=== PATIENT | male | born 1955 | race Caucasian/White ===

== ENCOUNTER 2020-08-01 14:12 | Outpatient (CLI) | payer BC, SELFPAY | END 2020-08-01 14:13 | disposition home or self-care (01) | LOC: ANHAUDIO 14:15 | PROVIDERS: PCP Internal Medicine; Visit Provider Nurse Practitioner Family | DX: H91.90 Unspecified hearing loss, unspecified ear (principal) | CPT/HCPCS: 92557; 92567 ==

== ENCOUNTER 2023-05-17 10:46 | Emergency (ER) | payer OTHER, SELFPAY ==
[2023-05-17] VITALS (11 sets, daily range): BP systolic 131–157; BP diastolic 83–99; PULSE 72–89; RESP 12–20; TEMP 36.8; O2SAT 94–98
--- NOTE | ~2023-05-17 | XR_ITS ---
EXAMINATION: XR elbow RT min 3V INDICATION: Right elbow pain TECHNIQUE: Four views of the right elbow are obtained. COMPARISON: None available FINDINGS: There is an acute, nondisplaced fracture of the radial head. An elbow joint effusion is pre sent. No additional fracture is identified. 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 IMPRESSION: 1. Acute radial head fracture with elbow joint effusion. Reviewed, dictated and finalized at location B. OR STORAGE ENGINEER
--- NOTE | ~2023-05-17 | CT_ITS ---
EXAMINATION:CT diagnostic chest w con DATE: 05/17/2023 13:10 INDICATION: Right chest pain. Trauma. TECHNIQUE: Computed tomography (CT) of the chest was performed with 75 mL Omnipaque 350 intravenous c ontrast. Automated exposure control and iterative reconstruction technique were employed. The dose-le ngth product (DLP) was 573.90 mGy-cm. COMPARISON: CT abdomen and pelvis 08/14/2013 FINDINGS: The lungs demonstrate mild atelectasis. No pleural effusion. The heart size is normal. No p ericardial effusion. There are coronary artery calcifications. There is a moderate-sized sliding hiat al hernia. There is a 5 mm cyst in the liver. There are fractures of anterior right second, third, fo urth, fifth, and sixth ribs. There is severe facet spondylosis. IMPRESSION: 1. Fractures of anterior right second-sixth ribs. 2. Moderate-sized sliding hiatal hernia. Reviewed, dictated and finalized at location A. NET DEVELOPER
--- NOTE | ~2023-05-17 | CT_ITS ---
EXAMINATION: CT cervical spine wo con DATE: 05/17/2023 12:47 INDICATION: Head injury. TECHNIQUE: Computed tomography (CT) of the cervical spine was performed without intravenous contrast. Automated exposure control and iterative reconstruction technique were employed. The dose-length pro duct was 454.28 mGy-cm. COMPARISON: None FINDINGS: There is 5 degrees levocurvature of cervical spine. 2 mm retrolisthesis of C3 on C4 and C4 on C5. Vertebral body heights are normal. There is severely decreased disc height at C3-C4 and C4-C5, mildly decreased disc height at C5-C6, and moderately decreased disc height at C6-C7. The following disc levels are specifically discussed: C2-C3: There is mild bilateral uncovertebral joint osteoarthritis. There is severe bilateral facet toby int osteoarthritis. There is mild left neural foraminal stenosis. There is no central canal stenosis. C3-C4: There is severe bilateral uncovertebral joint osteoarthritis. There is mild right and severe l eft facet joint osteoarthritis. There is mild bilateral neural foraminal stenosis. There is mild cent ral canal stenosis. C4-C5: There is severe bilateral uncovertebral joint osteoarthritis. There is mild lateral facet join t osteoarthritis. There is mild right and moderate left neural foraminal stenosis. There is mild cent ral canal stenosis. C5-C6: There is mild bilateral uncovertebral joint osteoarthritis. There is severe bilateral facet toby int osteoarthritis. There is mild bilateral neural foraminal stenosis. There is mild central canal st enosis. C6-C7: There is moderate right and severe left uncovertebral joint osteoarthritis. There is severe bi lateral facet joint osteoarthritis. There is mild bilateral neural foraminal stenosis. There is mild central canal stenosis. C7-T1: There is no uncovertebral joint osteoarthritis. There is mild right and severe left facet join t osteoarthritis. There is mild left neural foraminal stenosis. There is no central canal stenosis. IMPRESSION: 1. No fracture. 2. Severe cervical spondylosis. Reviewed, dictated and finalized at location A. RTISING MANAGER
--- NOTE | ~2023-05-17 | XR_ITS ---
EXAMINATION: XR chest 2V DATE: 05/17/2023 13:00 INDICATION: Right-sided chest pain TECHNIQUE: AP and lateral views of the chest are obtained. COMPARISON: 08/05/2013 FINDINGS: The lungs are free of acute opacities. No pleural effusion or pneumothorax. The heart size is normal. There is a small sliding hiatal hernia. There is mild thoracic spondylosis. Healed right-s ided rib fractures are noted. IMPRESSION: 1. No acute cardiopulmonary abnormality. Reviewed, dictated and finalized at location B. PUSHER
--- NOTE | ~2023-05-17 | CT_ITS ---
EXAMINATION: CT brain wo con DATE: 05/17/2023 12:47 INDICATION: Head injury. Fall from tree. TECHNIQUE: Computed tomography (CT) of the head was performed without intravenous contrast. The mA wa s adjusted according to patient size. Iterative reconstruction technique was employed. The dose-lengt h product was 605.33 mGy-cm. COMPARISON: Head CT 07/12/2015 FINDINGS: There is no intracranial hemorrhage, acute infarction, or abnormal intracranial mass lesion . The ventricles are normal in size. There is mild mucosal thickening in the paranasal sinuses. The o rbits are normal. The mastoid air cells are normal. IMPRESSION: 1. Normal brain. Reviewed, dictated and finalized at location A. PURSE SEINER IMPRESSION: 1. Normal brain.
--- NOTE | ~2023-05-17 | XR_ITS ---
EXAMINATION: XR wrist RT min 3V INDICATION: Right wrist pain TECHNIQUE: Four views of the right wrist are obtained. COMPARISON: None available FINDINGS: Bone alignment is normal. There is subtle heterotopic ossification projecting dorsal to the proximal carpal row on the lateral view. There is mild osteoarthritis at the radiocarpal joints, tri scaphe joint, and the first carpometacarpal joint. IMPRESSION: 1. Possible small dorsal carpal chip fracture. Reviewed, dictated and finalized at location B.
--- NOTE | 2023-05-17 11:20 | ECG_ITS ---
Measurements Intervals Calvin Rate: 73 P: 47 AK: 179 QRS: 2 QRSD: 104 T: 35 QT: 376 QTc: 415 Interpretive Statements SINUS RHYTHM WITH OCCASIONAL SUPRAVENTRICULAR PREMATURE COMPLEXES NONSPECIFIC T-WAVE ABNORMALITY BORDERLINE ECG NO PREVIOUS ECG AVAILABLE FOR COMPARISON Electronically Signed On 05-17-2023 14:13:23 SCREENING REPRESENTATIVE by Vahid Polanco M.D.
[2023-05-17] MEDS: ONDANSETRON INJ 4 MG/2 ML VIAL IV PUSH (12:32)
[2023-05-17] MEDS: MORPHINE SULFATE (*CRX) 4 MG/ML INJ IV PUSH (12:33)
[2023-05-17 12:38] LABS: Basophils Percent Auto 0.3 % (0.2-1.2); Eosinophils Percent Auto 0.2 % (0-4.4); Hematocrit 45.8 % (42.0-52.0); Hemoglobin 15.1 g/dL (14.0-18.0); Immature Granulocyte Absolute 0.04 K/mm3 (0.00-0.031); Immature Granulocyte Percent A 0.4 % (0-0.5); Lymphocytes Absolute Auto 0.96 K/mm3 (0.9-3.2); Lymphocytes Percent Auto 9.1 % (18.3-44.2); Mean Corpuscular Hemoglobin 30.1 pg (26-34); Mean Corpuscular Volume 91.2 fl (80-100); Mean Platelet Volume 9.4 fl (7.4-10.4); Monocytes Absolute Auto 0.7 K/mm3 (0.1-0.6); Monocytes Percent Auto 6.7 % (2.6-8.5); Neutrophils Absolute Auto 8.8 K/mm3 (1.3-6.7); Neutrophils Percent Auto 83.3 % (45.5-73.1); Platelet Count Result 231 k/mm3 (150-375); Red Blood Count 5.02 M/mm3 (4.6-6.20); Red Cell Distribution Width 12.8 % (11.5-14.5); White Blood Count 10.6 K/mm3 (4.5-10.0)
--- NOTE | 2023-05-17 12:42 | ED.FALL ---
HPI - Fall General Chief Complaint: Fall Stated Complaint: fall out of tree- ambultory Time Seen by Provider: 05/17/23 12:09 Source: patient, RN notes reviewed and old records reviewed Mode of arrival: ambulatory Limitations: no limitations History of Present Illness HPI Narrative: This is a 67 year old male who presents for evaluation of right rib pain, right wrist pain, and right elbow s/p fall. PAtient states he was on ladder cutting down a limb. He fell of the ladder face first. He states he hit his head but denies LOC. He was able to get up and he ambulatory immediately. He has right frontal rib pain but he does not think he broke a rib. He has pain with breathing. He also reports right elbow pain with movement and right wrist pain. He denies taking anticoagulation. Related Data Allergies Allergy/AdvReac Type Severity Reaction Status Date / Time No Known Allergies Allergy Mild Verified 05/17/23 11:38 Review of Systems Review of Systems: All systems reviewed & are unremarkable except as noted in HPI and below Constitutional: Constitutional: Denies weakness Cardiovascular: Cardiovascular: Reports chest pain, Denies syncope, Denies rapid heart rate, Denies irregular heart rhythm, Denies leg edema and Denies dyspnea Respiratory: Respiratory: Denies chest congestion, Denies hemoptysis, Denies excessive phlegm production and Denies dyspnea Gastrointestinal: Gastrointestinal: Denies abdominal pain, Denies hematochezia, Denies diarrhea and Denies vomiting Genitourinary: Genitourinary: Denies hematuria, Denies dysuria, Denies penile discharge and Denies testicular pain Musculoskeletal: Musculoskeletal: Reports back pain, Reports arthralgias, Denies joint swelling, Denies loss of height and Denies muscle weakness Neurologic: Reports dizziness, Denies syncope, Denies focal weakness and Denies weakness PMFSH Past Medical History Medical History (Updated 05/17/23 @ 14:27 by Elaina Guerra MD) Rheumatoid arthritis Surgical History Surgical History (Updated 05/17/23 @ 13:10 by Elaina Guerra MD) H/O surgical amputation of finger Social History Social History (Updated 05/17/23 @ 13:10 by Elaina Guerra MD) Tobacco type: cigars Exam Const: General: no acute distress and alert Nutritional Appearance: well nourished Orientation/consciousness: patient oriented x3 HENMT: Face/Nose/Sinus: Normal external nose present Mouth: Yes Normal oral and palatal mucosa present, Yes lip normal and Yes moist mucous membranes Throat: posterior oropharynx normal and uvula midline Other: right forehead abrasion Eyes: Conjunctivae: conjunctivae normal Pupils: Equal, round and reactive pupils present EOM: EOMs intact bilaterally Neck: Other: in cervical collar Chest: Chest palpation & inspection: tenderness (right anterior chest) Resp: Effort & Inspection: normal respiratory effort Auscultation: clear to auscultation bilaterally Cardio: Rate: regular rate Rhythm: regular rhythm Heart sounds: no murmurs GI: GI Palp: Yes Soft to palpation, No Tenderness to palpation present (GI), No Guarding due to palpation present (GI) and No Rigid due to palpation Auscultation: normal bowel sounds Skin: General skin exam: normal color Rashes: no rashes Wounds: no wounds Neuro: General: patient oriented x3, moves all extremities and CN's II-XI intact bilaterally Extrem: General: normal to inspection Psych: Mental Status: mental status grossly normal Affect: normal affect Attitude: cooperative Course Reevaluation(s) Reevaluation #1: I discussed with patient that he has rib fractures, right radial head fracture and chip fracture to his wrist. He understands he will be placed in splint and given sling. He also understand he will be instructed on incentive spirometer. I will prescribe pain medication at home. Date: 05/17/23 Time: 13:47 Consultations Consultation #1: I Spoke with Dr. Avni Jennings who ag
[2023-05-17 12:50] LABS: Alanine Aminotransferase 50 U/L (6-50); Albumin Level 4.3 g/dL (3.5-5.1); Alkaline Phosphatase 66 U/L (38-126); Anion Gap 4 mmol/L (8-16); Aspartate Amino Transferase 38 U/L (17-59); Bilirubin,Total 0.9 mg/dL (0.2-1.3); Blood Urea Nitrogen 12 mg/dL (9-20); Calcium 9.2 mg/dL (8.4-10.2); Carbon Dioxide 27 mmol/L (22-30); Chloride 109 mmol/L (98-107); Estimated CRCL calculation 81 ml/min; Estimated Glomerular Filt Rate > 60; Glucose 107 mg/dL (65-110); Potassium 3.9 mmol/L (3.4-5.0); Sodium 140 mmol/L (137-145)
== END 2023-05-17 14:45 | disposition home or self-care (01) ==
PROVIDERS: Emergency Provider General Practice
DX: S52.124A Nondisplaced fracture of head of right radius, initial encounter for closed fracture (principal); S22.41XA Multiple fractures of ribs, right side, initial encounter for closed fracture; S62.101A Fracture of unspecified carpal bone, right wrist, initial encounter for closed fracture; I49.1 Atrial premature depolarization; R94.31 Abnormal electrocardiogram [ECG] [EKG]; K44.9 Diaphragmatic hernia without obstruction or gangrene; M47.812 Spondylosis without myelopathy or radiculopathy, cervical region; W11.XXXA Fall on and from ladder, initial encounter
CPT/HCPCS: 29125; 36415; 70450; 71046; 71260; 72125; 73080; 73110; 80053; 85025; 93005; 96374; 96375; 99284; A4565; J2270; J2405; Q9967

== ENCOUNTER 2023-11-16 09:37 | Emergency (ER) | payer OTHER, SELFPAY ==
--- NOTE | 2023-11-16 09:44 | ED.DENTAL ---
HPI - Dental/Oral General Chief complaint: Dental/Oral Stated complaint: tooth issue front of mouth Time Seen by Provider: 11/16/23 10:05 Mode of arrival: ambulatory Limitations: no limitations History of Present Illness HPI Narrative: 68-year-old male presents concern for left lower dental pain and swelling. Reports 2 days ago had an infected tooth extracted air and began having pain, swelling. He denies problems swallowing or fever MD Complaint: tooth pain Related Data Home Medications Medication Instructions Recorded Confirmed amlodipine 5 mg tablet 5 mg PO DAILY 05/21/23 11/16/23 atorvastatin 10 mg tablet 10 mg PO DAILY 05/21/23 11/16/23 diclofenac sodium 25 mg 25 mg PO BID 05/21/23 11/16/23 tablet,delayed release losartan 50 mg tablet 50 mg PO DAILY 05/21/23 11/16/23 methocarbamol 500 mg tablet 500 mg PO BID 11/16/23 11/16/23 tamsulosin 0.4 mg capsule 0.4 mg PO DAILY 11/16/23 11/16/23 Allergies Allergy/AdvReac Type Severity Reaction Status Date / Time No Known Allergies Allergy Mild Verified 11/16/23 09:55 Review of Systems Review of Systems: CONSTITUTIONAL: Denies malaise, chills, sweats, or fever. EYES: Denies visual changes ENT: Denies rhinorrhea, congestion, sinus pain, otalgia or sore throat. Reports left lower dental pain CARDIOVASCULAR: Denies chest pain, palpitations RESPIRATORY: Denies cough or dyspnea. SKIN: Denies rash or itching. MUSCULOSKELETAL: Denies myalgia. NEUROLOGIC: Denies numbness, weakness, or headache. All systems reviewed & are unremarkable except as noted in HPI and below PMFSH Past Medical History Medical History Hypertension Rheumatoid arthritis Surgical History Surgical History H/O surgical amputation of finger History of knee surgery left knee Family History Family History (Updated 06/18/23 @ 14:20 by Linda Ayala CMA) Other Arthritis Cancer Hypertension Social History Social History (Updated 06/18/23 @ 14:20 by Linda Ayala CMA) Smoking status: Former smoker Tobacco type: cigars Alcohol intake: current Alcohol use details: socially Substance use: current Substance use type: marijuana Do You Feel Safe in your Home?: Yes Lack of Food: Never True Current Housing: I Have Housing Concerned About Future Housing: No Difficulty Paying Gas/Electric Bills: No Difficulty Paying for Meds: No Currently Unemployed: No Education: Decline to Answer Difficulty w/ Childcare or Family Care: No Living arrangements: with family Occupation/Education: retired Comments At time of signature, agree with nursing past medical, surgical, social and family history. There is no relevant family history pertinent to the presenting complaint Exam Narrative: GENERAL: Well-appearing, well-nourished, and in no acute distress. HEAD: Normocephalic, atraumatic. EYES: PERRLA, sclera clear ENT: Nares clear. Mucous membranes moist. TM pearly stoner with sharp light reflex bilaterally; no tragal tenderness. Oropharynx without erythema or lesions. Tonsils not enlarged and without exudate. Missing teeth, broken teeth, caries, swelling of the chin and apical and gingival area below tooth number 23 NECK: Supple. No lymphadenopathy. CHEST: No respiratory distress. Speaks in full sentences. HEART: Regular rate and rhythm. SKIN: Warm, dry, no visible rash. NEURO: Alert and oriented x3. PSYCH: Normal mood and affect Course Course Emergency Course: Patient is aware of diagnosis, understands and agrees to treatment plan. Anticipatory guidance given. Patient agrees to follow-up as directed and is aware of reasons to seek care at the emergency department. Portions of this record may have been created with voice recognition software Level of Care: Express Care Visit Vital Signs Vital signs: Reviewed.
[2023-11-16 09:55] VITALS: BP 125/79; PULSE 85; RESP 16; TEMP 37.3; O2SAT 98
[2023-11-16 09:59] VITALS: BP 125/79; PULSE 85; RESP 16; TEMP 37.3; O2SAT 98
== END 2023-11-16 10:20 | disposition home or self-care (01) ==
PROVIDERS: Emergency Provider Nurse Practitioner
DX: K08.89 Other specified disorders of teeth and supporting structures (principal); Z87.891 Personal history of nicotine dependence; I10 Essential (primary) hypertension; M06.9 Rheumatoid arthritis, unspecified
CPT/HCPCS: 99213; G0463